=== PATIENT | female | born 1985 | race Caucasian/White ===

== ENCOUNTER 2024-10-08 13:10 | Emergency (ER) | payer OTHER, SELFPAY ==
[2024-10-08 13:11] VITALS: BMI 21.9
[2024-10-08 13:58] VITALS: BP 122/70; PULSE 105; RESP 20; TEMP 37.2; O2SAT 99
--- NOTE | 2024-10-08 14:03 | PD.EDRME ---
Rapid Medical Screening Exam E Arrival date/time: 10/08/24 13:10 39-year-old female presents to the emergency department with history of osteomyelitis here for complaints of possible allergic reaction to her medications and increasing back pain with fever. I have greeted and performed a focused initial assessment of this patient. Initial appropriate labs ordered at this time. A comprehensive ED assessment and evaluation of the patient and analysis of all test and completion of medical decision making process will be conducted by additional ED provider. Chief Complaint: Eye Problems Time Seen by Provider: 10/08/24 13:39 Vital signs: Vital Signs Temperature 98.9 F 10/08/24 13:58 Pulse Rate 105 H 10/08/24 13:58 Respiratory Rate 20 10/08/24 13:58 Blood Pressure 122/70 10/08/24 13:58 Pulse Oximetry (%) 99 10/08/24 13:58 Oxygen Delivery Method Room Air 10/08/24 13:58
--- NOTE | 2024-10-08 14:16 | PC.NURSE ---
Patient from [facility] and taken to rm 8 with c/o left eye pain redness intermittently after she receives vancomycin infusions, patient states she get vancomycin via homehealth nurse for osteomyelitis, Dr. Miller at bedside evaluating patient, new orders received.
--- NOTE | 2024-10-08 14:19 | EDNOTE_ITS ---
ED Eye Problem RME/HPI General Chief complaint: Eye Problems Stated complaint: LEFT EYE REDNESS, SORE THROAT X1DAY, HX OF OSTEOMY Time Seen by Provider: 10/08/24 13:39 Arrival date/time: 10/08/24 13:10 RME / HPI RME / HPI Narrative: 10/08/24 13:10 39-year-old female presents to the emergency department with history of osteomyelitis here for complaints of possible allergic reaction to her medications and increasing back pain with fever. I have greeted and performed a focused initial assessment of this patient. Initial appropriate labs ordered at this time. A comprehensive ED assessment and evaluation of the patient and analysis of all test and completion of medical decision making process will be conducted by additional ED provider. DR ALMA AKINS ED EVALUATION Patient is a 39 year old female presenting to the ED complaining of left eye irritation and redness following a home antibiotics. Patient history includes sepsis and osteomyelitis, states she has a port in place where she does vancomycin treatments x2 daily, states her eyes always become irritated post treatment. Complains of left sided back pain and fever today. No further reported history at this time. Related Data Previous Rx's ?Medication ?Instructions ?Recorded ciprofloxacin HCl 500 mg tablet 500 mg PO Q12H #20 tabs 08/24/24 Allergies Allergy/AdvReac Type Severity Reaction Status Date / Time amoxicillin Allergy Severe Anaphylaxis Verified 10/08/24 13:13 Penicillins Allergy Severe Anaphylaxis Verified 10/08/24 13:13 Review of Systems Review of Systems Narrative Review of Systems: Gen: + fever, no chills, no weight loss EYES: +left eye pain, redness, and swelling. No discharge, no visual changes HEENT: No ear pain, no congestion, no sore throat PULM: No shortness of breath, no cough, no congestion CV: No chest pain, no dyspnea on exertion, no palpitations GI: No nausea, no vomiting, no diarrhea, no pain, no constipation : No frequency, no urgency, no dysuria Musc/skel:+left side back pain. No joint pain Skin: No rash Psyc: No hallucinations, no depression Heme/Lymph: No easy bleeding or bruising tendencies Neuro: No weakness, no headache Past Medical History Past Medical History CARDIAC: Negative Cardiac Disorders or Congestive Heart Failure RESPIRATORY: Negative Chronic Obstructive Pulmonary Disease (COPD) or Asthma GENITOURINARY: Negative Renal Disease MUSCULOSKELETAL: Positive Musculoskeletal Disorders (osteomyelitis) ENDOCRINE: Negative Diabetes Mellitus Type 1 or Diabetes Mellitus Type 2 HEMATOLOGIC: Negative Sickle Cell Disease Social History SMOKING STATUS: Never smoker ED Exam Narrative Physical exam: GEN. APPEARANCE: The patient is alert awake oriented X-3 in minimal distress, lying down comfortably, does not look ill/toxic. Patient has good eye contact. Patient is cooperative. VITALS: All vitals were reviewed and the pulse ox is 99% on room air which is normal according to my interpretation. HEENT:pink discoloration of upper and lower eyelid on the left, no swelling no discharge. Pupils are equal and reactive. Oral mucosa is moist. Patent Nares NECK: Supple, nontender, no thyromegaly, no meningismus, no JVD, no step offs CHEST: Symmetrical, atraumatic, and with equal expansion , Nontender on palpation no deformity and no crepitus. CARDIOVASCULAR: Heart regular rhythm no murmur or gallop rub or extra beats. LUNGS: Clear to auscultation bilaterally with symmetrical chest rise. No laboring tachypnea or wheezing. No intercostal subcostal retraction. No rales and no rhonchi. ABDOMEN: Soft, flat, nontender to palpation, no guarding or rebound tenderness. There are no abnormal masses palpated. Active and normal bowel sounds. EXTREMITIES: midline port catheter intact, clean and dry. Nontender. No edema. No cyanosis. Patient is able to move all 4 extremities well, with full ROM and good CSM. SKIN: Warm and dry, no jaundice or rashes noted. MUSCULOSKELETAL: No lubar or midline bony tenderness. There is no CVA tenderness. No paraspinal muscle spasm or tenderness. NEURO: Patient is CEDENO x 4, Cranial nerves II through XII grossly intact. There is no focal neurologic deficits noted. GCS is 15, PNS and SEARCH MANAGER appear grossly intact. PSYCHIATRIC: Patient is in normal mood and affect, cooperative, no SI or HI or hallucinations. Course Quality Measures none Orders Category Date Time Status CBC Stat Lab 10/08/24 14:33 Completed CMP [Comprehensive Metabolic Panel] Stat Lab 10/08/24 14:33 Completed HYDROcodone*/APAP 5/325 [[place] 5/325] Med 10/08/24 14:20 Discontinued 1 tab PO X1 ONE Reevaluation(s) Reevaluation #1: Patient is feeling better after medication however is requesting something else. Time: 15:34 Vital Signs Vital signs: Vital Signs Temperature 98.9 F 10/08/24 13:58 Pulse Rate 105 H 10/08/24 13:58 Respiratory Rate 20 10/08/24 13:58 Blood Pressure 122/70 10/08/24 13:58 Pulse Oximetry (%) 99 10/08/24 13:58 Oxygen Delivery Method Room Air 10/08/24 13:58 Eye Patient data External records reviewed:: [facility] previous records Clinical information provided by:: patient Social determinants that could affect healthcare access:: none Patient has the following chronic illnesses:: osteomyelitis, sepsis How is presenting disease/condition affected by chronic disease/condition?: uneffected by Evaluation data The following diagnostics were reviewed and interpreted by me:: lab results Lab and/or radiology exams considered but not ordered:: none Interpretation Summary: see above Medications / Prescriptions Medications or Prescriptions considered but not ordered:: none Medication administrations:: Medication Administration History Discontinued Medications Hydrocodone Bitart/Acetaminophen (Hydrocodone/Apap 5/325 Tablet) 1 tab PO X1 ONE Stop: 10/08/24 14:21 Last Admin: 10/08/24 14:26 Dose: 1 tab Documented By: KM see above Consultations Consultation(s) initiated? (list below): No Diagnosis Eye Problem Differential Diagnosis: other (chronic pain, viral syndrome, osteomyelitis, bacteremia) Most likely diagnosis given after review of the tests above:: see below Admission Indicated Admission indicated?: not indicated Admission Request Was there a request for admission?: No Disposition Plan Disposition Plan: Discharge Discharge Attestation Discharge Attestation: The patient and all family members were given an opportunity to ask questions and understood the discharge instructions. Discharge instructions specifically effects, indications for sooner follow up or return to the emergency department, and the expected course of current diagnosis. Patient condition: Stable Discharge Plan Plan Patient Disposition: HOME (Self Care) Prescriptions/Referrals Prescriptions/Med Rec: No Action ciprofloxacin HCl 500 mg tablet 500 mg PO Q12H Qty: 20 0RF Problem List Clinical Impression: Allergic drug reaction, Osteomyelitis of vertebra Patient/Caregiver Discharge Instructions Education Materials: ED Medicine Reaction: Allergic Additional Instructions: Today's reaction to your eyes is mild and does not outweigh the benefits of continued antibiotic infusion at home. It is okay to continue your regular vancomycin treatments. Follow-up with your infectious disease provider ([facility]) within 1 week for recheck. You can return to the emergency department sooner symptoms worsen or if you notice any new, concerning issues. Print Language: Indonesian Stand Alone Forms: [facility]isa Award Info., Patient Portal Info Letter
[2024-10-08] MEDS: HYDROcodone/APAP 5/325 TABLET 1 TAB PO (14:26)
[2024-10-08 14:53] LABS: Basophils # (Auto) 0.1 Thou/mm3 (0.0-0.2); Basophils % (Auto) 1 % (0-2.5); Eosinophils # (Auto) 0.1 Thou/mm3 (0.0-0.5); Eosinophils % (Auto) 1 % (0-10); Hematocrit 36.2 % (36.0-46.0); Hemoglobin 11.3 g/dL (12.0-16.0); Immature Granulocytes % (Auto) 0 % (0-0); Immature Granulocytes Auto 0.04 Thou/mm3 (0.00-0.00); Lymphocytes # (Auto) 1.7 Thou/mm3 (1.0-4.8); Lymphocytes % (Auto) 14 % (10-50); Mean Corpuscular HGB Conc 31.2 g/dl (31.0-37.0); Mean Corpuscular Volume 83 fL (80-100); Monocytes # (Auto) 0.8 Thou/mm3 (0.0-0.8); Monocytes % (Auto) 6 % (0-12); Neutrophils # (Auto) 10.1 Thou/mm3 (1.8-7.7); Neutrophils % (Auto) 79 % (37-80); Nucleated Red Blood Cell % 0 /100 WBC (0); Platelet Count 375 Thou/mm3 (140-440); RDW Standard Deviation 56.2 fL (36.4-46.3); Red Blood Count 4.35 Miln/mm3 (4.00-5.20); White Blood Count 12.7 Thou/mm3 (3.6-11.0)
[2024-10-08 15:10] LABS: Alanine Aminotransferase 12 U/L (10-49); Albumin/Globulin Ratio 1.8 (1.2-2.2); Alkaline Phosphatase 117 U/L (46-116); Anion Gap 11 (7-16); Aspartate Amino Transferase 16 U/L (0-34); BUN/Creatinine Ratio 20 Ratio (12-20); Bilirubin,Total 0.2 mg/dL (0.3-1.2); Blood Urea Nitrogen 18 mg/dL (9-23); Calcium 9.4 mg/dL (8.3-10.6); Calcium (Corrected) 9.4 mg/dL (8.5-10.1); Carbon Dioxide 20.4 mMol/L (20.0-31.0); Chloride 109 mMol/L (98-107); Creatinine (Component) 0.9 mg/dL (0.6-1.3); Estimated Creatinine Clearance 83.2 mL/min (>60); Globulin 2.8 gm/dL (2.3-3.5); Osmolality,Calculated 278 (275-295); Potassium 3.5 mMol/L (3.4-5.1); Sodium 140 mMol/L (136-145); Total Protein 7.8 gm/dL (5.7-8.2); eGFR > 60 See Note
[2024-10-08 15:17] LABS: Glucose 43 mg/dL (74-106)
--- NOTE | 2024-10-08 15:26 | PC.NURSE ---
Dr. Miller speaking with patient regarding her results and plan of care.
[2024-10-08 15:50] VITALS: BP 111/70; PULSE 96; RESP 16; TEMP 37.1; O2SAT 98
== END 2024-10-08 15:50 | disposition home or self-care (01) ==
LOC: SERX 15:54
PROVIDERS: Emergency Provider Emergency Medicine
DX: H57.89 Other specified disorders of eye and adnexa (principal); T36.8X5A Adverse effect of other systemic antibiotics, initial encounter; M46.20 Osteomyelitis of vertebra, site unspecified
CPT/HCPCS: 36415; 80053; 85025; 99283; A9270

== ENCOUNTER 2024-10-26 19:04 | Emergency (ER) | payer OTHER, SELFPAY ==
[2024-10-26 19:05] VITALS: BMI 22.7
[2024-10-26 20:09] VITALS: BP 119/89; PULSE 106; RESP 16; TEMP 37.1; O2SAT 97
--- NOTE | 2024-10-26 20:15 | XR_ITS ---
Examination: CT abdomen and pelvis without contrast. Coronal 3-D reconstructions. Sagittal 2-D reconstructions. Date and time of exam:October 26, 2024 1101 hrs. Indications: Onset left flank pain today with chills CTDI: vol (mGy): 8.06 DLP: (mGycm): 463 Technique: Axial images of the abdomen have been obtained, 3 mm slice thickness Intravenous contrast material has not been administered. Low dose protocols were performed. One or more of the following dose reduction techniques were used; automated exposure control, adjustment of the mA and/or KV according to patient size, use of iterative reconstruction technique. Findings: Small retrocardiac gastric hernia No focal liver or splenic lesions Absent gallbladder No pancreatic mass 2 mm nonobstructing left renal calculus, no hydronephrosis or ureteral calculi Air distended colon Normal appendix No diverticulitis Suspicious for 6.8 cm posterior left pelvic cyst Partially anteverted uterus Contracted urinary bladder Severe osteopenia with kyphoplasty T12 and chronic compression T12 and T9 Impression: 2 mm nonobstructing left renal calculus, no hydronephrosis or ureteral calculi Colonic ileus Normal appendix Recommend pelvic sonography to exclude 6.8 cm left pelvic cyst
--- NOTE | 2024-10-26 20:15 | PD.EDRME ---
Rapid Medical Screening Exam [facility] Arrival date/time: 10/26/24 19:04 39F with history of seizures and kidney stones (needing surgery before) presents to ED with 2 days of L flank pain and dysuria/hematuria, as well as N/V. Chief Complaint: Urogenital-Female Vital signs: Vital Signs Temperature 98.8 F 10/26/24 20:09 Pulse Rate 106 H 10/26/24 20:09 Respiratory Rate 16 10/26/24 20:09 Blood Pressure 119/89 H 10/26/24 20:09 Pulse Oximetry (%) 97 10/26/24 20:09 Oxygen Delivery Method Room Air 10/26/24 20:09
[2024-10-26] MEDS: ONDANSETRON ODT 4 MG TABRAP PO (21:01)
[2024-10-26] MEDS: KETOROLAC INJ 60 MG/2 ML VIAL IM (21:01)
[2024-10-26 21:05] LABS: Lactate (Lactic Acid) 1.5 mMol/L (0.4-2.0)
[2024-10-26 21:06] LABS: Basophils # (Auto) 0.1 Thou/mm3 (0.0-0.2); Basophils % (Auto) 1 % (0-2.5); Eosinophils # (Auto) 0.1 Thou/mm3 (0.0-0.5); Eosinophils % (Auto) 1 % (0-10); Hematocrit 34.9 % (36.0-46.0); Hemoglobin 11.1 g/dL (12.0-16.0); Immature Granulocytes % (Auto) 0 % (0-0); Immature Granulocytes Auto 0.02 Thou/mm3 (0.00-0.00); Lymphocytes # (Auto) 3.2 Thou/mm3 (1.0-4.8); Lymphocytes % (Auto) 28 % (10-50); Mean Corpuscular HGB Conc 31.8 g/dl (31.0-37.0); Mean Corpuscular Hemoglobin 25.9 pg (25.0-35.0); Mean Corpuscular Volume 82 fL (80-100); Monocytes # (Auto) 1.1 Thou/mm3 (0.0-0.8); Monocytes % (Auto) 10 % (0-12); Neutrophils # (Auto) 6.8 Thou/mm3 (1.8-7.7); Neutrophils % (Auto) 61 % (37-80); Nucleated Red Blood Cell % 0 /100 WBC (0); Platelet Count 453 Thou/mm3 (140-440); RDW Standard Deviation 54.8 fL (36.4-46.3); Red Blood Count 4.28 Miln/mm3 (4.00-5.20); White Blood Count 11.2 Thou/mm3 (3.6-11.0)
[2024-10-26 21:37] LABS: Alanine Aminotransferase 10 U/L (10-49); Albumin/Globulin Ratio 1.7 (1.2-2.2); Alkaline Phosphatase 110 U/L (46-116); Anion Gap 11 (7-16); Aspartate Amino Transferase 18 U/L (0-34); BUN/Creatinine Ratio 30 Ratio (12-20); Bilirubin,Total 0.2 mg/dL (0.3-1.2); Blood Urea Nitrogen 27 mg/dL (9-23); Calcium 9.7 mg/dL (8.3-10.6); Calcium (Corrected) 9.7 mg/dL (8.5-10.1); Carbon Dioxide 18.3 mMol/L (20.0-31.0); Chloride 108 mMol/L (98-107); Creatinine (Component) 0.9 mg/dL (0.6-1.3); Estimated Creatinine Clearance 83.2 mL/min (>60); Glucose 83 mg/dL (74-106); Lipase 49 U/L (12-53); Osmolality,Calculated 277 (275-295); Potassium 4.4 mMol/L (3.4-5.1); Procalcitonin 0.14 ng/ml (0.0-0.49); Sodium 137 mMol/L (136-145); eGFR > 60 See Note
[2024-10-26 21:38] LABS: HCG,Qualitative Serum Negative
[2024-10-26 21:42] LABS: Collection Type, Urine Clean Catch
[2024-10-26 22:01] LABS: Amphetamine/Methamp Scrn,U Negative (Negative); Barbiturate Screen,Urine Negative (Negative); Benzodiazepines Screen,Urine Negative (Negative); Benzoylecgonine Screen, Ur Negative (Negative); Fentanyl Screen,Urine Negative (Negative); Opiate Screen,Urine Negative (Negative); THC Screen,Urine Negative (Negative)
[2024-10-26 22:21] LABS: Bilirubin,Urine Negative (Negative); Blood,Urine 3+ (Negative); Color,Urine Brown (Lt Yel-Yel); Culture Indicated,Urine Contaminated; Glucose, Urine Negative (Negative); Ketones,Urine Negative (Negative); Leukocyte Esterase,Urine Positive (Negative); Nitrite,Urine Negative (Negative); PH,Urine 5.5 (5.0-7.0); Protein,Urine 1+ (Neg - Trace); RBC,Urine 5533 /hpf (0-3); Specific Gravity,Urine 1.045 (1.001-1.035); Squamous Epithelial Cell,Urine 26 /hpf (0-5); Urobilinogen,Urine Negative mg/dL (0.0-1.0); WBC,Urine 51 /hpf (0-5)
[2024-10-26 22:23] LABS: Clarity,Urine Turbid (Clear/Hazy)
[2024-10-26 22:24] VITALS: BP 126/93; PULSE 94; RESP 16; TEMP 36.8; O2SAT 97
--- NOTE | 2024-10-26 22:27 | PC.NURSE ---
Pt to room 7 at this time from lobby; assumed care.
--- NOTE | 2024-10-27 00:09 | EDNOTE_ITS ---
ED Female Urogenital RME/HPI General Chief complaint: Urogenital-Female Stated complaint: HEMATURIA; L FLANK PAIN X1 DAY; CHILLS Time Seen by Provider: 10/26/24 21:00 Arrival date/time: 10/26/24 19:04 Limitations: no limitations RME / HPI RME / HPI Narrative: 10/26/24 19:04 39F with history of seizures and kidney stones (needing surgery before) presents to ED with 2 days of L flank pain and dysuria/hematuria, as well as N/V. --------- Dr. Agrawal's Main ED Evaluation: 39yo female presents to the ED for a chief complaint of left flank pain x 2 days. Patient states the pain is severe, endorsing it feels similar to her kidney stones last year. She currently rates the pain an 8 out of 10 in severity. .She endorses associated hematuria and nausea. Her urologist is in [place]. She denies any fever, chills or any other associated symptoms. Related Data Allergies Allergy/AdvReac Type Severity Reaction Status Date / Time amoxicillin Allergy Severe Anaphylaxis Verified 10/26/24 19:10 Penicillins Allergy Severe Anaphylaxis Verified 10/26/24 19:10 tramadol Allergy Severe Hives Verified 10/26/24 19:10 Review of Systems Review of Systems Systems Reviewed: All systems reviewed, normal except as documented Past Medical History Past Medical History CARDIAC: Negative Congestive Heart Failure RESPIRATORY: Negative Chronic Obstructive Pulmonary Disease (COPD) GENITOURINARY: Positive Kidney Stones; Negative Renal Disease ENDOCRINE: Negative Diabetes Mellitus Type 1 or Diabetes Mellitus Type 2 Social History SMOKING STATUS: Never smoker ED Exam General Limitations: Present no limitations General appearance: Present alert and in no apparent distress Head Head exam: Present atraumatic Eye Eye exam: Present normal appearance, PERRL and EOMI ENT ENT exam: Present normal exam, normal oropharynx and mucous membranes moist Neck Neck exam: Present normal inspection, full ROM and trachea midline Chest Chest inspection: Present normal inspection and symmetric chest wall rise Respiratory Respiratory exam: Present normal lung sounds bilaterally Cardiovascular Cardiovascular exam: Present regular rate, normal rhythm and normal heart sounds Abdominal Exam Abdominal exam: Present soft and normal bowel sounds Extremities Exam Extremities exam: Present normal inspection and full ROM Back Exam Back exam: Present full ROM and CVA tenderness (L) (mild) Neurological Exam Neurological exam: Present alert, oriented X3 and CN II-XII intact Psychiatric Psychiatric exam: Present normal affect and normal mood Skin Skin exam: Present warm, dry, intact and normal color Course Quality Measures none Orders Category Date Time Status CT abdomen pelvis wo con Stat Exams 10/26/24 20:15 Completed CBC Stat Lab 10/26/24 20:41 Completed CMP [Comprehensive Metabolic Panel] Stat Lab 10/26/24 20:41 Completed Drug Screen,Urine Stat Lab 10/26/24 21:22 Completed HCG,Qualitative Serum Stat Lab 10/26/24 20:41 Completed Lactate (Lactic Acid) Stat Lab 10/26/24 20:41 Completed Lipase Stat Lab 10/26/24 20:41 Completed Procalcitonin Stat Lab 10/26/24 20:41 Completed Urinalysis, C/S if Indicated Stat Lab 10/26/24 19:10 Completed HYDROcodone/APAP 10/325 [[place] 10/325] Med 10/27/24 01:42 Discontinued 1 tab PO X1 ONE HYDROmorphone INJ [Dilaudid Inj] Med 10/27/24 00:28 Discontinued 1 mg IVP X1 ONE Ketorolac Inj [Toradol Inj] Med 10/27/24 00:09 Discontinued 30 mg IVP X1 ONE Ketorolac Inj [Toradol Inj] Med 10/26/24 20:15 Discontinued 60 mg IM X1 ONE Ondansetron Odt [Zofran Odt] Med 10/26/24 20:15 Discontinued 4 mg PO X1 ONE Ondansetron Odt [Zofran Odt] Med 10/27/24 00:35 Discontinued 4 mg PO X1 ONE Tamsulosin HCl [Flomax] Med 10/27/24 00:28 Discontinued 0.4 mg PO X1 ONE Vital Signs Vital signs: Vital Signs Temperature 98.8 F 10/26/24 20:09 Pulse Rate 106 H 10/26/24 20:09 Respiratory Rate 16 10/26/24 20:09 Blood Pressure 119/89 H 10/26/24 20:09 Pulse Oximetry (%) 97 10/26/24 20:09 Oxygen Delivery Method Room Air 10/26/24 20:09 Pulse ox is 97% on room air, which is normal according to my interpretation. Urogenital - Female Patient data External records reviewed:: [facility] previous records (Per chart review, patient has no previous ED visits or admissions.) Clinical information provided by:: patient Social determinants that could affect healthcare access:: none Patient has the following chronic illnesses:: kidney stones How is presenting disease/condition affected by chronic disease/condition?: caused by Evaluation data The following diagnostics were reviewed and interpreted by me:: lab results and radiology exam(s) Lab and/or radiology exams considered but not ordered:: none Interpretation Summary: WBC count is slightly elevated at 11.2, CMP is normal, Lactic Acid is normal, Procalcitonin is normal, HCG is negative, UDS is negative, UA shows brown urine with 1+ protein, 5533 RBCs, 51 WBCs, but is contaminated, according to my interpretation. ------ I have personally reviewed the radiology data and agree with the radiologist's interpretation below: [facility] Report Signed Patient: DREW LEON [facility]. Record#: [id number] Birthdate: 1985 Age/Sex: 39 / F Location: [facility] Attending Dr: Ordering Physician: Dawood Esquivel PA-C Date of Service: 10/26/24 Procedure(s): CT abdomen pelvis wo con Accession Number(s): [id number] cc: Kai Crockett MD; NO PRIMARY/FAMILY,PHYSICIAN; Dawood Esquivel PA-C~ Examination: CT abdomen and pelvis without contrast. Coronal 3-D reconstructions. Sagittal 2-D reconstructions. Date and time of exam:October 26, 2024 1101 hrs. Indications: Onset left flank pain today with chills CTDI: vol (mGy): 8.06 DLP: (mGycm): 463 Technique: Axial images of the abdomen have been obtained, 3 mm slice thickness Intravenous contrast material has not been administered. Low dose protocols were performed. One or more of the following dose reduction techniques were used; automated exposure control, adjustment of the mA and/or KV according to patient size, use of iterative reconstruction technique. Findings: Small retrocardiac gastric hernia No focal liver or splenic lesions Absent gallbladder No pancreatic mass 2 mm nonobstructing left renal calculus, no hydronephrosis or ureteral calculi Air distended colon Normal appendix No diverticulitis Suspicious for 6.8 cm posterior left pelvic cyst Partially anteverted uterus Contracted urinary bladder Severe osteopenia with kyphoplasty T12 and chronic compression T12 and T9 Impression: 2 mm nonobstructing left renal calculus, no hydronephrosis or ureteral calculi Colonic ileus Normal appendix Recommend pelvic sonography to exclude 6.8 cm left pelvic cyst Dictated By: Kai Crockett MD Signed By: <Electronically signed by Kai Crockett MD in [place]> 10/26/24 7059 Medications / Prescriptions Medications or Prescriptions considered but not ordered:: none Medication administrations:: Medication Administration History Discontinued Medications Hydrocodone Bitart/Acetaminophen (Hydrocodone/Apap 10/325 Tab) 1 tab PO X1 ONE Stop: 10/27/24 01:43 Last Admin: 10/27/24 01:58 Dose: 1 tab Documented By: KG Hydromorphone HCl (Hydromorphone Inj 2 Mg/Ml Vial) 1 mg IVP X1 ONE Stop: 10/27/24 00:29 Last Admin: 10/27/24 00:36 Dose: 1 mg Documented By: KG Ketorolac Tromethamine (Ketorolac Inj 60 Mg/2 Ml Vial) 60 mg IM X1 ONE Stop: 10/26/24 20:16 Last Admin: 10/26/24 21:01 Dose: 60 mg Documented By: EE Ketorolac Tromethamine (Ketorolac Inj 30 Mg/Ml Vial) 30 mg IVP X1 ONE Stop: 10/27/24 00:10 Last Admin: 10/27/24 00:26 Dose: 30 mg Documented By: KG Ondansetron HCl (Ondansetron Odt 4 Mg Tabrap) 4 mg PO X1 ONE; Protocol Stop: 10/26/24 20:16 Last Admin: 10/26/24 21:01 Dose: 4 mg Documented By: EE Ondansetron HCl (Ondansetron Odt 4 Mg Tabrap) 4 mg PO X1 ONE; Protocol Stop: 10/27/24 00:36 Last Admin: 10/27/24 00:39 Dose: 4 mg Documented By: KG Tamsulosin HCl (Tamsulosin Hcl 0.4 Mg Capsule) 0.4 mg PO X1 ONE Stop: 10/27/24 00:29 Last Admin: 10/27/24 00:36 Dose: 0.4 mg Documented By: KG see above Consultations Consultation(s) initiated? (list below): No Diagnosis Urogenital Female Differential Diagnosis: other (kidney stone, obstructing kidney stone, UTI, infected kidney stone) Most likely diagnosis given after review of the tests above:: see below Admission Indicated Admission indicated?: not indicated Admission Request Was there a request for admission?: No Disposition Plan Disposition Plan: Discharge Discharge Attestation Discharge Attestation: The patient and all family members were given an opportunity to ask questions and understood the discharge instructions. Discharge instructions specifically effects, indications for sooner follow up or return to the emergency department, and the expected course of current diagnosis. Patient condition: Stable Discharge Plan Plan Patient Disposition: HOME (Self Care) Prescriptions/Referrals Referrals: No Primary/Family,Physician [Primary Care Provider] - In 1 week Problem List Clinical Impression: Kidney stone Patient/Caregiver Discharge Instructions Print Language: Turkish Stand Alone Forms: [facility] Award Info., Patient Portal Info Letter
[2024-10-27] MEDS: KETOROLAC INJ 30 MG/ML VIAL IVP (00:26)
[2024-10-27 00:32] VITALS: BP 133/105; PULSE 81; RESP 18; O2SAT 100
[2024-10-27] MEDS: TAMSULOSIN HCL 0.4 MG CAPSULE PO (00:36)
[2024-10-27] MEDS: HYDROmorphone INJ 2 MG/ML VIAL 1 MG IVP (00:36)
[2024-10-27] MEDS: ONDANSETRON ODT 4 MG TABRAP PO (00:39)
[2024-10-27] MEDS: HYDROcodone/APAP 10/325 TAB PO (01:58)
[2024-10-27 02:03] VITALS: BP 98/85; PULSE 91; RESP 18; O2SAT 98
--- NOTE | 2024-10-27 02:23 | PC.NURSE ---
Pt reports told her she will be getting a prescription for Flomax. No prescription seen in discharge papers at this time - reminded Dr. Agrawal that prescription needs to be sent.
== END 2024-10-27 02:03 | disposition home or self-care (01) ==
PROVIDERS: Physician Assistant; Emergency Provider Emergency Medicine
DX: N20.0 Calculus of kidney (principal); K56.7 Ileus, unspecified; R93.49 Abnormal radiologic findings on diagnostic imaging of other urinary organs
CPT/HCPCS: 36415; 74176; 80053; 80307; 81001; 81025; 83605; 83690; 84145; 84703; 85025; 96372; 96374; 96375; 99284; J1885; J3490; Q0162; A9270

== ENCOUNTER 2024-11-09 20:28 | Emergency (ER) | payer OTHER, SELFPAY ==
[2024-11-09 20:30] VITALS: BMI 17.2
[2024-11-09 21:40] VITALS: BP 118/81; PULSE 88; RESP 16; TEMP 36.8; O2SAT 99
--- NOTE | 2024-11-09 21:40 | PD.EDRME ---
Rapid Medical Screening Exam RME Arrival date/time: 11/09/24 20:28 39 year old female present to ED for c/o of flank pain, recent dx with kidney stone I have greeted and performed a focused initial assessment of this patient. A comprehensive ED assessment and evaluation of the patient, analysis of all test results, and completion of the medical decision making process will be conducted by additional ED providers. Chief Complaint: Urogenital-Female Time Seen by Provider: 11/09/24 21:29
[2024-11-09] MEDS: traMADol HCL 50 MG TABLET PO (21:47)
[2024-11-09 22:28] LABS: Basophils # (Auto) 0.1 Thou/mm3 (0.0-0.2); Basophils % (Auto) 1 % (0-2.5); Eosinophils # (Auto) 0.1 Thou/mm3 (0.0-0.5); Eosinophils % (Auto) 0 % (0-10); Hematocrit 34.4 % (36.0-46.0); Hemoglobin 10.5 g/dL (12.0-16.0); Immature Granulocytes % (Auto) 0 % (0-0); Immature Granulocytes Auto 0.04 Thou/mm3 (0.00-0.00); Lymphocytes # (Auto) 2.4 Thou/mm3 (1.0-4.8); Lymphocytes % (Auto) 20 % (10-50); Mean Corpuscular HGB Conc 30.5 g/dl (31.0-37.0); Mean Corpuscular Hemoglobin 25.6 pg (25.0-35.0); Mean Corpuscular Volume 84 fL (80-100); Monocytes # (Auto) 0.6 Thou/mm3 (0.0-0.8); Monocytes % (Auto) 5 % (0-12); Neutrophils % (Auto) 74 % (37-80); Nucleated Red Blood Cell % 0 /100 WBC (0); Platelet Count 501 Thou/mm3 (140-440); RDW Standard Deviation 55.9 fL (36.4-46.3); White Blood Count 12.2 Thou/mm3 (3.6-11.0)
[2024-11-09 22:50] LABS: Alanine Aminotransferase 16 U/L (10-49); Albumin, Serum 4.8 gm/dL (3.5-5.0); Albumin/Globulin Ratio 1.7 (1.2-2.2); Alkaline Phosphatase 130 U/L (46-116); Anion Gap 9 (7-16); Aspartate Amino Transferase 15 U/L (0-34); BUN/Creatinine Ratio 22 Ratio (12-20); Bilirubin,Total < 0.2 mg/dL (0.3-1.2); Blood Urea Nitrogen 24 mg/dL (9-23); Calcium 9.2 mg/dL (8.3-10.6); Calcium (Corrected) 9.2 mg/dL (8.5-10.1); Carbon Dioxide 20.9 mMol/L (20.0-31.0); Chloride 107 mMol/L (98-107); Creatinine (Component) 1.1 mg/dL (0.6-1.3); Estimated Creatinine Clearance 55.2 mL/min (>60); Globulin 2.9 gm/dL (2.3-3.5); Glucose 105 mg/dL (74-106); Lipase 63 U/L (12-53); Osmolality,Calculated 277 (275-295); Potassium 4.4 mMol/L (3.4-5.1); Sodium 137 mMol/L (136-145); Total Protein 7.7 gm/dL (5.7-8.2); eGFR > 60 See Note
[2024-11-09 22:55] LABS: HCG,Qualitative Serum Negative
--- NOTE | 2024-11-10 01:29 | PC.NURSE ---
patient called back from lobby no answer
--- NOTE | 2024-11-10 01:54 | PC.NURSE ---
PT CALLED BACK FROM LOBBY NO ANSWER
--- NOTE | 2024-11-10 02:06 | PC.NURSE ---
PT CALLED BACK FROM LOBBY NO ANSWER
--- NOTE | 2024-11-10 02:31 | PC.NURSE ---
PT WALKED IN FROM OUTSIDE. INFORMED PT WE HAVE CALLED HER SEVERAL TIMES. PT WAITING IN LOBBY AT THIS TIME
--- NOTE | 2024-11-10 05:13 | PC.NURSE ---
PT CALLED FROM LOBBY TO UPDATE VITALS AND I RECEIVED NO ANSWER.
--- NOTE | 2024-11-10 05:31 | PC.NURSE ---
PT CALLED FROM LOBBY X2 WITH NO ANSWER.
== END 2024-11-10 01:39 | disposition left against medical advice (07) ==
LOC: SERX 22:03
PROVIDERS: Physician Assistant; Emergency Provider Emergency Medicine
DX: R10.9 Unspecified abdominal pain (principal); Z53.29 Procedure and treatment not carried out because of patient's decision for other reasons
CPT/HCPCS: 36415; 80053; 81001; 83690; 84703; 85025; 87086; 99283; A9270

== ENCOUNTER 2024-11-20 12:43 | Emergency (ER) | payer OTHER, SELFPAY ==
[2024-11-20 12:58] VITALS: BP 114/81; PULSE 107; RESP 18; TEMP 36.8; O2SAT 99; BMI 23.8
--- NOTE | 2024-11-20 12:59 | XR_ITS ---
Examination: CT abdomen with intravenous contrast CT pelvis with intravenous contrast 2-D coronal reconstructions 2-D sagittal reconstructions Date and time of exam:November 20, 2024 1714 hours INDICATIONS: Abdominal pain acute gastrointestinal bleeding beginning 3 days ago, nausea vomiting, diagnosis multiple myeloma. History kidney stones CTDI: vol (mGy) 8.12 DLP: (mGycm) 470 Technique: Multiple axial sections of the abdomen and pelvis have been obtained. 64 slice high-resolution scanner used. 3 mm axial sections have been obtained, post intravenous injection 40 cc [id number] 2-D sagittal, coronal reconstructions obtained. Low dose protocols were performed. One or more of the following dose reduction techniques were used; automated exposure control, adjustment of the mA and/or KV according to patient size, use of iterative reconstruction technique. Findings: Pericardial effusion, inferiorly on the right measuring up to 13 mm No focal liver lesions Absent gallbladder Spleen not enlarged No pancreatic or adrenal mass 2 mm upper pole left renal calculus, no hydronephrosis or ureteral calculi Aorta normal size No pericecal inflammatory change No bowel obstruction Left abdomen bowel sutures No diverticulitis Partially retroverted uterus No uterine or adnexal mass Possible mild asymmetric inflammatory change in the right perineum axial image 251, clinical correlation advised Severe osteopenia, chronic osteoporotic compressions T12 T9, T8 with kyphoplasty T12 IMPRESSION: Partial visualization pericardial effusion 2 mm calculus upper pole left kidney, no hydronephrosis or ureteral calculi No CT findings of appendicitis bowel obstruction or diverticulitis Consider nuclear medicine labeled red blood cell gastrointestinal bleeding study follow-up as clinically warranted
--- NOTE | 2024-11-20 13:00 | EDRME_ITS ---
Rapid Medical Screening Exam [facility] Arrival date/time: 11/20/24 12:43 39-year-old female presents emergency department complaints of abdominal pain and vomiting blood. Patient reports that on the fifth of this month she was admitted to [facility] had banding and endoscopy done on the seventh Chief Complaint: GI Bleed Vital signs: Vital Signs Temperature 98.3 F 11/20/24 12:58 Pulse Rate 107 H 11/20/24 12:58 Respiratory Rate 18 11/20/24 12:58 Blood Pressure 114/81 11/20/24 12:58 Pulse Oximetry (%) 99 11/20/24 12:58 Oxygen Delivery Method Room Air 11/20/24 12:58
[2024-11-20 13:31] LABS: Basophils # (Auto) 0.1 Thou/mm3 (0.0-0.2); Basophils % (Auto) 1 % (0-2.5); Eosinophils # (Auto) 0.2 Thou/mm3 (0.0-0.5); Eosinophils % (Auto) 2 % (0-10); Hematocrit 37.7 % (36.0-46.0); Hemoglobin 11.8 g/dL (12.0-16.0); Immature Granulocytes % (Auto) 0 % (0-0); Immature Granulocytes Auto 0.03 Thou/mm3 (0.00-0.00); Lymphocytes # (Auto) 2.2 Thou/mm3 (1.0-4.8); Lymphocytes % (Auto) 27 % (10-50); Mean Corpuscular HGB Conc 31.3 g/dl (31.0-37.0); Mean Corpuscular Hemoglobin 26.5 pg (25.0-35.0); Mean Corpuscular Volume 85 fL (80-100); Monocytes # (Auto) 0.4 Thou/mm3 (0.0-0.8); Monocytes % (Auto) 6 % (0-12); Neutrophils # (Auto) 5.2 Thou/mm3 (1.8-7.7); Neutrophils % (Auto) 64 % (37-80); Nucleated Red Blood Cell % 0 /100 WBC (0); Platelet Count 352 Thou/mm3 (140-440); RDW Standard Deviation 56.9 fL (36.4-46.3); Red Blood Count 4.46 Miln/mm3 (4.00-5.20)
[2024-11-20 13:48] LABS: INR 0.9 (0.9-1.3); Partial Thromboplastin Time 28.3 Seconds (22.0-36.0); Prothrombin Time 10.1 Seconds (9.0-12.2)
[2024-11-20 13:49] LABS: Alanine Aminotransferase 14 U/L (10-49); Albumin, Serum 4.4 gm/dL (3.5-5.0); Albumin/Globulin Ratio 1.4 (1.2-2.2); Alkaline Phosphatase 119 U/L (46-116); Anion Gap 10 (7-16); Aspartate Amino Transferase 21 U/L (0-34); BUN/Creatinine Ratio 23 Ratio (12-20); Bilirubin,Total 0.2 mg/dL (0.3-1.2); Blood Urea Nitrogen 21 mg/dL (9-23); Calcium 9.3 mg/dL (8.3-10.6); Calcium (Corrected) 9.3 mg/dL (8.5-10.1); Carbon Dioxide 18.9 mMol/L (20.0-31.0); Chloride 109 mMol/L (98-107); Creatinine (Component) 0.9 mg/dL (0.6-1.3); Estimated Creatinine Clearance 83.2 mL/min (>60); Globulin 3.2 gm/dL (2.3-3.5); Glucose 71 mg/dL (74-106); Osmolality,Calculated 276 (275-295); Potassium 4.5 mMol/L (3.4-5.1); Sodium 138 mMol/L (136-145); Total Protein 7.6 gm/dL (5.7-8.2); eGFR > 60 See Note
[2024-11-20 13:54] LABS: HCG,Qualitative Serum Negative
--- NOTE | 2024-11-20 14:06 | PD.EDGIBLD ---
ED GI Bleed RME/HPI General Chief complaint: GI Bleed Stated complaint: VOMITING BLOOD Time Seen by Provider: 11/20/24 14:04 Arrival date/time: 11/20/24 12:43 RME / HPI RME / HPI Narrative: 11/20/24 12:43 39-year-old female presents emergency department complaints of abdominal pain and vomiting blood. Patient reports that on the fifth of this month she was admitted to [facility] had banding and endoscopy done on the DR. MERCADO MAIN ED EVALUATION 39 year old female with history of seizures, stomach cancer s/p complete gastrectomy in 2021 at [facility] presents to the ED for evaluation of abdominal pain beginning this morning. Described as aching in sensation that is located most to the right upper and epigastric regions, rating as severe. Accompanied by nausea and multiple bouts of bloody emesis, totaling a little over a cup. Patient reports she was admitted at [facility] 11/11/2024 through 11/14/2024 for similar abdominal pain with bloody emesis. States during her admission she received a blood transfusion and underwent endoscopy that showed active bleeding that was banded. Reportedly after being discharged home was doing well up until today. Denies fevers, chills, chest pain, cough, shortness of breath, diarrhea, or urinary symptoms. Related Data Previous Rx's ?Medication ?Instructions ?Recorded ciprofloxacin HCl 500 mg tablet 500 mg PO Q12H #20 tabs 08/24/24 Allergies Allergy/AdvReac Type Severity Reaction Status Date / Time amoxicillin Allergy Severe Anaphylaxis Verified 11/20/24 12:46 Penicillins Allergy Severe Anaphylaxis Verified 11/20/24 12:46 ketorolac [From Toradol] Allergy Mild Hives Verified 11/20/24 12:46 Review of Systems Review of Systems Narrative Review of Systems: GEN: No fever, no chills, no weight loss EYES: No discharge, no visual changes, no pain HEENT: No ear pain, no congestion, no sore throat PULM: No shortness of breath, no cough, no congestion CV: No chest pain, no dyspnea on exertion, no palpitations GI: +vomiting blood, no diarrhea, +pain, no constipation : No frequency, no urgency and no dysuria MUSC/SKEL No joint pain, no back pain SKIN: No rash NEURO: No weakness, no headache Past Medical History Past Medical History GENITOURINARY: Positive Kidney Stones MUSCULOSKELETAL: Positive Musculoskeletal Disorders (osteomyelitis) Social History SMOKING STATUS: Never smoker ED Exam Narrative Physical exam: GENERAL APPEARANCE: Well hydrated, well nourished, in no acute distress. VITALS: All vitals were reviewed and the pulse ox is 95% on room air which is normal according to my interpretation. HEENT: Normocephalic, atramatic, EOMI, EACs are patent. There is no bulge or retraction. Throat without erythema or exudate. Moist oromucosa. No jaundice NECK: Supple, no JVD or bruits. CARDIOVASCULAR: Heart regular without S3-S4 or murmur. No rubs or gallops. LUNGS/CHEST: Clear to auscultation bilaterally. No rales, rhonchi, or wheezing. Normal inspection. ABDOMEN: Soft, old surgical scars noted, nontender, with normal bowel sounds. No pulsatile masses. No rebound, rigidity, or guarding. No incarcerated hernia. EXTREMITIES: Normal inspection and palpation. No edema, clubbing, or cyanosis. Intact CSM SKIN: Warm and dry without rashes. Normal inspection. MUSCULOSKELETAL: Normal inspection. No gross deformity, full ROM all extremities NEURO: Alert and oriented x3. Cranial nerves II through XII grossly intact. There are no other motor or sensory deficits noted. PSYCHIATRIC: Normal mood and affect. No psychosis. Course Quality Measures none Orders Category Date Time Status CT Screening NOW Care 11/20/24 13:00 Active Insert IV NOW Care 11/20/24 13:[address] abdomen pelvis w con Stat Exams 11/20/24 12:59 Ordered CBC Stat Lab 11/20/24 13:10 Completed Comprehensive Metabolic Panel Stat Lab 11/20/24 13:10 Completed HCG,Qualitative Serum Stat Lab 11/20/24 13:10 Completed Lipase Stat Lab 11/20/24 13:10 Completed Partial Thromboplastin Time Stat Lab 11/20/24 13:10 Completed Prothrombin Time with INR Stat Lab 11/20/24 13:10 Completed Type and Screen Stat Lab 11/20/24 13:10 Completed Dextrose 5%-Ns [D5-Ns] 500 ml Med 11/20/24 14:20 Active IV 125 mls/hr Morphine Inj Med 11/20/24 14:20 Discontinued 4 mg IVP X1 ONE Ondansetron Inj [Zofran Inj] Med 11/20/24 14:20 Discontinued 4 mg IV X1 ONE Pantoprazole Inj [Protonix Inj] Med 11/20/24 14:20 Discontinued 40 mg IVP X1 ONE Vital Signs Vital signs: Vital Signs Temperature 98.3 F 11/20/24 12:58 Pulse Rate 107 H 11/20/24 12:58 Respiratory Rate 18 11/20/24 12:58 Blood Pressure 114/81 11/20/24 12:58 Pulse Oximetry (%) 99 11/20/24 12:58 Oxygen Delivery Method Room Air 11/20/24 12:58 GI Bleed MDM Narrative MDM Narrative:: I, Maria Del Carmen French, gustabo scribing for and in the presence of Dr. Mercado. CBC negative. PT negative. CMP negative except for the bicarb of 19. Blood sugar was 71 therefore I put the patient on a D5 normal saline maintenance fluid. Lipase is negative. test is negative. In the emergency room, the patient received IV fluid namely D5 normal saline, medication for pain namely morphine and Zofran. I also put on Protonix IV. 6 PM, pending CT abdomen and pelvic the patient is stable and is signed out to Patient data External records reviewed:: [facility] previous records and Other (specify) (I reviewed DC paperwork from [facility] from admission 11/10/2024 through 11/14/2024. ) Clinical information provided by:: patient Social determinants that could affect healthcare access:: none Patient has the following chronic illnesses:: seizures, stomach cancer s/p complete gastrectomy in 2021 at [facility] How is presenting disease/condition affected by chronic disease/condition?: exacerbated by Evaluation data The following diagnostics were reviewed and interpreted by me:: lab results and radiology exam(s) Lab and/or radiology exams considered but not ordered:: None Interpretation Summary: As noted above Medications / Prescriptions Medications or Prescriptions considered but not ordered:: None Medication administrations:: Medication Administration History Dextrose/Sodium Chloride (D5-Ns) 500 mls @ 125 mls/hr IV .Q4H STA Stop: 11/20/24 18:19 Last Admin: 11/20/24 15:19 Dose: 125 mls/hr Documented By: ED Discontinued Medications Morphine Sulfate (Morphine Sulf Inj 10 Mg/Ml Vial) 4 mg IVP X1 ONE Stop: 11/20/24 14:21 Last Admin: 11/20/24 15:17 Dose: 4 mg Documented By: ED Ondansetron HCl (Ondansetron Inj 2 Mg/Ml Inj 2 Ml) 4 mg IV X1 ONE; Protocol Stop: 11/20/24 14:21 Last Admin: 11/20/24 15:12 Dose: 4 mg Documented By: ED Pantoprazole Sodium (Pantoprazole Inj 40 Mg Vial) 40 mg IVP X1 ONE Stop: 11/20/24 14:21 Last Admin: 11/20/24 15:15 Dose: 40 mg Documented By: ED See above Consultations Consultation(s) initiated? (list below): No Diagnosis GI bleed differential diagnosis: esophageal varices and Upper gastrointestinal hemorrhage Most likely diagnosis given after review of the tests above:: Hematemesis Abdominal pain Admission Indicated Admission indicated?: not indicated Explain why admission is indicated or not indicated:: Patient signed out pending CT scan Admission Request Was there a request for admission?: No Disposition Plan Disposition Plan: other (specify) (Signed out to Dr. Miller pending CT ) Discharge Plan Plan Disposition Comment: Stable at signout Prescriptions/Referrals Prescriptions/Med Rec: No Action ciprofloxacin HCl 500 mg tablet 500 mg PO Q12H Qty: 20 0RF Referrals: Henrry Day MD [Primary Care Provider] - In 1 week Problem List Clinical Impression: Abdominal pain, Hematemesis Patient/Caregiver Discharge Instructions Print Language: Turkmen
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
[2024-11-20 14:27] VITALS: BP 106/71; PULSE 85; RESP 18; TEMP 36.9; O2SAT 97
[2024-11-20] MEDS: ONDANSETRON INJ 2 MG/ML INJ 2 ML 4 MG IV (15:12)
[2024-11-20] MEDS: PANTOPRAZOLE INJ 40 MG VIAL IVP (15:15)
[2024-11-20] MEDS: MORPHINE SULF INJ 10 MG/ML VIAL 4 MG IVP ×3 (15:17→21:04)
[2024-11-20] MEDS: DEXTROSE 5%-NS 500 ML 125 ML IV (15:19)
[2024-11-20 15:20] LABS: Lipase 52 U/L (12-53)
[2024-11-20 16:23] VITALS: BP 100/73; PULSE 77; RESP 15; TEMP 36.7; O2SAT 95
[2024-11-20 18:04] VITALS: BP 126/78; PULSE 81; RESP 16; TEMP 36.8; O2SAT 96
--- NOTE | 2024-11-20 18:13 | EDNOTE_ITS ---
Emergency Room Addendum Addendum Narrative: 1800: Care assumed from Dr. Wood, the previous shift emergency physician. Past medical, surgical, social and family history reviewed. Vitals and home medications reviewed. Results and treatment plan discussed. I will assume the care of the patient at this time and will follow the patient, pending CT abdomen pelvis. Please refer to the emergency department record for history and examination from initial visit. 1856: Repeat HnH ordered. Currently pending records from [facility] at this time. Repeat HnH is 11.3/35.9, compared to earlier's when it was 11.8/37.7, according to my interpretation. Inpatient records from [facility] were obtained and reviewed by me. Patient had an EGD done by Dr. Schwartz on 11/13/24, which showed no varices, no ulcers, no esophageal mass, and no mass effect. It showed esophagitis. Discussed results with the patient at bedside. Patient is stable for outpatient follow-up. RADIOLOGY RESULTS: [place] [facility] Report Signed Patient: DREW LEON [facility] Record#: [id number] Birthdate: 1985 Age/Sex: 39 / F Location: [facility] Attending Dr: Ordering Physician: Nando LIND)Nate NP Date of Service: 11/20/24 Procedure(s): CT abdomen pelvis w con Accession Number(s): [id number] cc: Nando LIND),Nate DARLING; Henrry Day MD; Kai Crockett MD~ Examination: CT abdomen with intravenous contrast CT pelvis with intravenous contrast 2-D coronal reconstructions 2-D sagittal reconstructions Date and time of exam:November 20, 2024 1714 hours INDICATIONS: Abdominal pain acute gastrointestinal bleeding beginning 3 days ago, nausea vomiting, diagnosis multiple myeloma. History kidney stones CTDI: vol (mGy) 8.12 DLP: (mGycm) 470 Technique: Multiple axial sections of the abdomen and pelvis have been obtained. 64 slice high-resolution scanner used. 3 mm axial sections have been obtained, post intravenous injection 40 cc [id number] 2-D sagittal, coronal reconstructions obtained. Low dose protocols were performed. One or more of the following dose reduction techniques were used; automated exposure control, adjustment of the mA and/or KV according to patient size, use of iterative reconstruction technique. Findings: Pericardial effusion, inferiorly on the right measuring up to 13 mm No focal liver lesions Absent gallbladder Spleen not enlarged No pancreatic or adrenal mass 2 mm upper pole left renal calculus, no hydronephrosis or ureteral calculi Aorta normal size No pericecal inflammatory change No bowel obstruction Left abdomen bowel sutures No diverticulitis Partially retroverted uterus No uterine or adnexal mass Possible mild asymmetric inflammatory change in the right perineum axial image 251, clinical correlation advised Severe osteopenia, chronic osteoporotic compressions T12 T9, T8 with kyphoplasty T12 IMPRESSION: Partial visualization pericardial effusion 2 mm calculus upper pole left kidney, no hydronephrosis or ureteral calculi No CT findings of appendicitis bowel obstruction or diverticulitis Consider nuclear medicine labeled red blood cell gastrointestinal bleeding study follow-up as clinically warranted Dictated By: Kai Crockett MD Signed By: <Electronically signed by Kai Crockett MD in [place]> 11/20/24 8118
[2024-11-20 19:22] LABS: Hematocrit 35.9 % (36.0-46.0); Hemoglobin 11.3 g/dL (12.0-16.0)
[2024-11-20 19:39] VITALS: BP 113/76; PULSE 79; RESP 16; O2SAT 96
--- NOTE | 2024-11-20 20:43 | PC.NURSE ---
Reported to Dr. Miller that pt is c/o pain at this time 05/17.
--- NOTE | 2024-11-20 21:32 | PC.NURSE ---
Pt to CT scan via [facility] at this time.
[2024-11-20 22:03] VITALS: BP 112/74; PULSE 72; RESP 16; O2SAT 989
== END 2024-11-20 22:04 | disposition home or self-care (01) ==
PROVIDERS: Nurse Practitioner Primary Care; Emergency Provider Emergency Medicine; PCP Internal Medicine
DX: K92.0 Hematemesis (principal); R10.13 Epigastric pain; R10.11 Right upper quadrant pain; Z90.3 Acquired absence of stomach [part of]
CPT/HCPCS: 36415; 74177; 80053; 83690; 84703; 85014; 85018; 85025; 85610; 85730; 86850; 86900; 86901; 96374; 96375; 96376; 99285; A4649; J2270; J2405; J2470; J7042; Q9967

== ENCOUNTER 2024-12-22 20:51 | Emergency (ER) | payer MEDICAID, SELFPAY ==
[2024-12-22 20:52] VITALS: BMI 18.8
--- NOTE | 2024-12-22 21:10 | PD.EDABDPN ---
ED Abdominal Pain RME/HPI General Chief Complaint: Abdominal Pain Stated complaint: BLOODY V/D Time seen by provider: 12/22/24 21:05 Arrival date/time: 12/22/24 20:51 RME / HPI RME / HPI narrative: This section includes all my notes and documentations, including HPI, PE, and ED course. Yan Ritter MD HPI: 39yo female with a history of gastrectomy 2/2 stomach CA, cholecystectomy presents to the ED for complaints of generalized abdominal pain, hematemesis, and bloody stools x today. Patient states her pain is moderate in nature. She states she called her PCP, [facility], due to her symptoms and was advised to come in for evaluation. She denies any fever, chills or any other associated symptoms. She is currently on Protonix, Prazosin, and Latuda. No other complaints. ROS: All negative except as documented in HPI. Physical Exam: General: Alert and oriented. No acute distress when remaining still. Eyes: Conjunctivae and lids clear. ENT: No nasal congestion. Neck: Supple. Heart: RRR. Lungs: No respiratory distress. Good air movement. No rhonchi, wheezing, rales. Abdomen: Soft and nontender. Legs: No clubbing, cyanosis, edema. Skin: Warm and dry. Neuro: Alert and oriented X 3. I reviewed all diagnostic test results. My review of the abdominal CT report is constipation. Blood tests and urine tests unremarkable. At this point, diagnoses include constipation. Recommended more outpatient workup. Based on my best medical judgment, made decision no further evaluation or treatment indicated at this time. Patient understands and agrees to the discharge instructions customized and printed, see below. Discharge Instructions from Dr. Ritter printed for you: 1. After extensive evaluation, there is no emergency. 2. Your CT scan shows significant constipation. Senokot S and milk of magnesia as prescribed. Zofran for nausea/vomiting. Tylenol: For severe pain. 3. See a private doctor on 12/25/24 for recheck and further care. Ask to review all test results and official radiology reports, to make sure you receive all necessary follow-ups and monitoring. To make sure there is no serious intra-abdominal condition, ask for help with more investigation not available here in the ER. Such as EGD or scoping the stomach, colonoscopy or scoping the colon, and referral to see post graduate internship. This is extremely important because is not normal to throw up blood in have rectal bleeding. 4. Seek immediate medical care with worsening or with any concerns. Yan Ritter MD Related Data Previous Rx's ?Medication ?Instructions ?Recorded ciprofloxacin HCl 500 mg tablet 500 mg PO Q12H #20 tabs 08/24/24 acetaminophen 300 mg-codeine 30 mg 2 tab PO TID PRN pain #20 tabs 12/23/24 tablet magnesium hydroxide 2,400 mg/10 mL 30 ml PO QDAY PRN constipation #60 12/23/24 oral suspension (Milk Of Magnesia mL Concentrated) ondansetron 4 mg disintegrating 4 mg PO TID PRN nausea and 12/23/24 tablet vomiting 5 days #10 tabs sennosides 8.6 mg-docusate sodium 4 tab-cap (4 x 8.6-50 mg) PO QDAY 12/23/24 50 mg tablet (Senokot-S) PRN constipation #20 tabs Allergies Allergy/AdvReac Type Severity Reaction Status Date / Time amoxicillin Allergy Severe Anaphylaxis Verified 11/20/24 12:46 Penicillins Allergy Severe Anaphylaxis Verified 11/20/24 12:46 ketorolac (From Toradol) Allergy Mild Hives Verified 11/20/24 12:46 Review of Systems Review of Systems Systems Reviewed: All systems reviewed, normal except as documented ED Exam Narrative Physical exam: As noted in HPI. Course Quality Measures none Orders Category Date Time Status CT abdomen pelvis wo con Stat Exams 12/22/24 21:11 Completed Amylase Stat Lab 12/22/24 21:25 Completed BMP [Basic Metabolic Panel] Stat Lab 12/22/24 21:25 Completed CBC Stat Lab 12/22/24 21:25 Completed Drug Screen,Urine Stat Lab 12/22/24 21:20 Completed HCG Qualitative,Urine Stat Lab 12/22/24 21:20 Completed HCG,Qualitative Serum Stat Lab 12/22/24 21:25 Completed Lipase Stat Lab 12/22/24 21:25 Completed Liver Panel Stat Lab 12/22/24 21:25 Completed Magnesium Stat Lab 12/22/24 21:25 Completed UA, C/S IF [Urinalysis, C/S if Indicated] Stat Lab 12/22/24 21:20 Completed Vital Signs Vital signs: Vital Signs Temperature 97.6 F 12/22/24 22:12 Pulse Rate 81 12/22/24 22:12 Respiratory Rate 18 12/22/24 22:12 Blood Pressure 112/80 12/22/24 22:12 Pulse Oximetry (%) 97 12/22/24 22:12 Oxygen Delivery Method Room Air 12/22/24 22:12 Abdominal Pain MDM MDM Narrative MDM Narrative:: Scribe Attestation: 12/22/24 - Edith Diaz am scribing for and in the presence of Dr. Ritter. Patient data External records reviewed:: [facility] previous records (Per chart review, patient was seen here on 11/20/24 for abdominal pain.) Clinical information provided by:: patient Social determinants that could affect healthcare access:: none Patient has the following chronic illnesses:: gastrectomy 2/2 stomach CA How is presenting disease/condition affected by chronic disease/condition?: uneffected by Evaluation data The following diagnostics were reviewed and interpreted by me:: lab results and radiology exam(s) Lab and/or radiology exams considered but not ordered:: none Interpretation Summary: Severe constipation Medications / Prescriptions Medications or Prescriptions considered but not ordered:: none Medication administrations:: none Consultations Consultation(s) initiated? (list below): No Diagnosis Differential diagnosis abdominal pain: acute appendicitis, calculus of kidney, constipation, diverticulitis, endometriosis, gastroenteritis, pancreatitis and small bowel obstruction Most likely diagnosis given after review of the tests above:: Constipation Admission Indicated Admission indicated?: not indicated Explain why admission is indicated or not indicated:: No criteria for admission. Admission Request Was there a request for admission?: No Disposition Plan Disposition Plan: Discharge Discharge Attestation Discharge Attestation: The patient and all family members were given an opportunity to ask questions and understood the discharge instructions. Discharge instructions specifically effects, indications for sooner follow up or return to the emergency department, and the expected course of current diagnosis. Patient condition: Stable Discharge Plan Plan Patient Disposition: HOME (Self Care) Prescriptions/Referrals Prescriptions/Med Rec: New sennosides-docusate sodium [Senokot-S] 8.6-50 mg tablet 4 tab-cap PO QDAY PRN (Reason: constipation) Qty: 20 0RF acetaminophen-codeine 300-30 mg tablet 2 tab PO TID MDD 6 PRN (Reason: pain) Qty: 20 0RF ondansetron 4 mg tablet,disintegrating 4 mg PO TID PRN (Reason: nausea and vomiting) 5 Days Qty: 10 0RF magnesium hydroxide [Milk Of Magnesia Concentrated] 2,400 mg/10 mL suspension 30 ml PO QDAY PRN (Reason: constipation) Qty: 60 0RF No Action ciprofloxacin HCl 500 mg tablet 500 mg PO Q12H Qty: 20 0RF Problem List Clinical Impression: Constipation Patient/Caregiver Discharge Instructions Discharge Activity: activity as tolerated Education Materials: ED Constipation (Adult) Additional Instructions: Discharge Instructions from Dr. Ritter printed for you: 1. After extensive evaluation, there is no emergency. 2. Your CT scan shows significant constipation. Senokot S and milk of magnesia as prescribed. Zofran for nausea/vomiting. Tylenol: For severe pain. 3. See a private doctor on 12/25/24 for recheck and further care. Ask to review all test results and official radiology reports, to make sure you receive all necessary follow-ups and monitoring. To make sure there is no serious intra-abdominal condition, ask for help with more investigation not available here in the ER. Such as EGD or scoping the stomach, colonoscopy or scoping the colon, and referral to see post graduate internship. This is extremely important because is not normal to throw up blood in have rectal bleeding. 4. Seek immediate medical care with worsening or with any concerns. Print Language: Palestinian Stand Alone Forms: [employer] Award Info., Patient Portal Info Letter
--- NOTE | 2024-12-22 21:11 | XR_ITS ---
Examination: CT abdomen and pelvis without contrast. Coronal 3-D reconstructions. Sagittal 2-D reconstructions. Date and time of exam:March 21, 2025 1128 hrs. Comparison November 20, 2024 Indications: Vomiting and diarrhea abdominal pain today CTDI: vol (mGy): 9.47 DLP: (mGycm): 536 Technique: Axial images of the abdomen have been obtained, 3 mm slice thickness Intravenous contrast material has not been administered. Low dose protocols were performed. One or more of the following dose reduction techniques were used; automated exposure control, adjustment of the mA and/or KV according to patient size, use of iterative reconstruction technique. Findings: No focal liver or splenic lesion Absent gallbladder No pancreatic or adrenal mass 2 mm mid pole nonobstructing left renal calculus coronal image 105 No bowel obstruction Normal appendix No diverticulitis Anteverted uterus No adnexal mass Contracted urinary bladder Suspicious for 4.4 cm left ureteropelvic size Severe osteopenia with kyphoplasty T12, chronic osteoporotic compression T9 Impression: 2 mm nonobstructing left renal calculus, no hydronephrosis or ureteral calculi Normal appendix Abundant stool throughout the entire colon, no obstruction Recommend pelvic sonography to exclude 4 cm posterior left pelvic cyst
[2024-12-22 21:54] LABS: Collection Type, Urine Clean Catch
[2024-12-22 21:59] LABS: Basophils # (Auto) 0.1 Thou/mm3 (0.0-0.2); Basophils % (Auto) 1 % (0-2.5); Eosinophils # (Auto) 0.1 Thou/mm3 (0.0-0.5); Eosinophils % (Auto) 1 % (0-10); Hematocrit 35.6 % (36.0-46.0); Hemoglobin 11.4 g/dL (12.0-16.0); Immature Granulocytes % (Auto) 0 % (0-0); Immature Granulocytes Auto 0.03 Thou/mm3 (0.00-0.00); Lymphocytes # (Auto) 3.7 Thou/mm3 (1.0-4.8); Lymphocytes % (Auto) 32 % (10-50); Mean Corpuscular Hemoglobin 27.2 pg (25.0-35.0); Mean Corpuscular Volume 85 fL (80-100); Monocytes # (Auto) 0.9 Thou/mm3 (0.0-0.8); Monocytes % (Auto) 8 % (0-12); Neutrophils # (Auto) 6.8 Thou/mm3 (1.8-7.7); Neutrophils % (Auto) 59 % (37-80); Nucleated Red Blood Cell % 0 /100 WBC (0); Platelet Count 355 Thou/mm3 (140-440); RDW Standard Deviation 60.7 fL (36.4-46.3); Red Blood Count 4.19 Miln/mm3 (4.00-5.20); White Blood Count 11.5 Thou/mm3 (3.6-11.0)
[2024-12-22 22:08] LABS: Bilirubin,Urine Negative (Negative); Blood,Urine Negative (Negative); Clarity,Urine Clear (Clear/Hazy); Color,Urine Lt-Yellow (Lt Yel-Yel); Culture Indicated,Urine Not Indicated; Glucose, Urine Negative (Negative); Ketones,Urine Negative (Negative); Leukocyte Esterase,Urine Positive (Negative); Nitrite,Urine Negative (Negative); Protein,Urine Trace (Neg - Trace); RBC,Urine 1 /hpf (0-3); Specific Gravity,Urine 1.042 (1.001-1.035); Squamous Epithelial Cell,Urine 10 /hpf (0-5); Urobilinogen,Urine Negative mg/dL (0.0-1.0); WBC,Urine 8 /hpf (0-5)
[2024-12-22 22:09] LABS: HCG Qualitative,Urine Negative
[2024-12-22 22:12] VITALS: BP 112/80; PULSE 81; RESP 18; TEMP 36.4; O2SAT 97
[2024-12-22 22:20] LABS: HCG,Qualitative Serum Negative
[2024-12-22 22:34] LABS: Amphetamine/Methamp Scrn,U Negative (Negative); Barbiturate Screen,Urine Negative (Negative); Benzodiazepines Screen,Urine Negative (Negative); Benzoylecgonine Screen, Ur Negative (Negative); Fentanyl Screen,Urine Negative (Negative); Opiate Screen,Urine Negative (Negative); THC Screen,Urine Negative (Negative)
[2024-12-22 22:51] LABS: Alanine Aminotransferase 16 U/L (10-49); Albumin, Serum 4.7 gm/dL (3.5-5.0); Alkaline Phosphatase 134 U/L (46-116); Anion Gap 8 (7-16); Aspartate Amino Transferase 19 U/L (0-34); BUN/Creatinine Ratio 24 Ratio (12-20); Bilirubin,Direct < 0.1 mg/dL (0.0-0.3); Bilirubin,Total 0.2 mg/dL (0.3-1.2); Blood Urea Nitrogen 24 mg/dL (9-23); Calcium 9.6 mg/dL (8.3-10.6); Carbon Dioxide 23.6 mMol/L (20.0-31.0); Chloride 107 mMol/L (98-107); Estimated Creatinine Clearance 66.2 mL/min (>60); Glucose 92 mg/dL (74-106); Lipase 44 U/L (12-53); Magnesium 2.3 mg/dL (1.6-2.6); Osmolality,Calculated 281 (275-295); Potassium 4.9 mMol/L (3.4-5.1); Sodium 139 mMol/L (136-145); Total Protein 7.7 gm/dL (5.7-8.2); eGFR > 60 See Note
[2024-12-22 23:03] LABS: Amylase 76 U/L (30-118)
== END 2024-12-23 01:20 | disposition home or self-care (01) ==
LOC: SERX 12-23 02:09
PROVIDERS: Emergency Provider Emergency Medicine
DX: K59.00 Constipation, unspecified (principal)
CPT/HCPCS: 36415; 74176; 80048; 80076; 80307; 81001; 81025; 82150; 83690; 83735; 84703; 85025; 99284

== ENCOUNTER 2025-01-23 13:57 | Emergency (ER) | payer MEDICAID, SELFPAY ==
--- NOTE | 2025-01-23 14:00 | EKG_ITS ---
[facility] Test Date: 2025-01-23 Pat Name: DREW LEON Department: Room: - Gender: Female [place] Reporter: : 1985 Requested By: Nate Collier ([place]) Order Number: [id number] Reading MD: Nate Collier ([place]) Measurements Intervals Colman Rate: 90 P: 43 TX: 130 QRS: 19 QRSD: 85 T: 41 QT: 353 QTc: 434 Interpretive Statements SINUS RHYTHM No previous ECG available for comparison /store/S0/[id number]/ecg/[id number].pdf
[2025-01-23 14:14] VITALS: BP 113/78; PULSE 95; RESP 18; TEMP 36.9; O2SAT 97; BMI 26.9
--- NOTE | 2025-01-23 14:18 | XR_ITS ---
Examination: Tibia-Fibula, right , 2 views Technique: Tibia-fibula AP lateral 2 views Date and time of exam: January 23, 2025 1326 hours INDICATIONS: Patient fell today with injury to the lower leg, lower leg pain. FINDINGS: Severe osteopenia Depression lateral tibial plateau Surgical clips medial upper lower leg IMPRESSION: Recommend coned knee films to assess fracture of the lateral tibial plateau
--- NOTE | 2025-01-23 14:18 | XR_ITS ---
Examination: CT brain head without contrast. 2-D sagittal coronal reconstructions Date and time of exam:January 23, 2025 1447 hours INDICATIONS: Syncopal episode today hit head CTDI: vol (mGy):46.4 DLP: (mGycm):924 Technique: Multiple CT axial sections of the brain have been obtained, 5 mm slice thickness. Contrast has not been administered. 2-D sagittal, coronal reconstructions have been obtained Low dose protocols were performed. One or more of the following dose reduction techniques were used; automated exposure control, adjustment of the mA and/or KV according to patient size, use of iterative reconstruction technique. Findings: No significant ventricular enlargement. Intra-axial or extra-axial hemorrhage density is not seen. No mass effect or midline shift Basal cisterns are not remarkable. Fourth ventricle is midline. Cranial vault intact. Impression: Negative for acute hemorrhage, mass effect or midline shift Advise clinical correlation follow-up accordingly
--- NOTE | 2025-01-23 14:19 | PD.EDRME ---
Rapid Medical Screening Exam RME Arrival date/time: 01/23/25 13:57 39 yo f present to Ed for c/o of syncope today. + leg laceration I have greeted and performed a focused initial assessment of this patient. A comprehensive ED assessment and evaluation of the patient, analysis of all test results, and completion of the medical decision making process will be conducted by additional ED providers. Chief Complaint: Wound/Laceration Time Seen by Provider: 01/23/25 14:15 Vital signs: Vital Signs Temperature 98.5 F 01/23/25 14:14 Pulse Rate 95 01/23/25 14:14 Respiratory Rate 18 01/23/25 14:14 Blood Pressure 113/78 01/23/25 14:14 Pulse Oximetry (%) 97 01/23/25 14:14 Oxygen Delivery Method Room Air 01/23/25 14:14
[2025-01-23 16:10] LABS: HCG,Qualitative Serum Negative
[2025-01-23 16:20] LABS: Alanine Aminotransferase 20 U/L (10-49); Albumin, Serum 4.2 gm/dL (3.5-5.0); Albumin/Globulin Ratio 1.6 (1.2-2.2); Alkaline Phosphatase 120 U/L (46-116); Anion Gap 9 (7-16); Aspartate Amino Transferase 29 U/L (0-34); BUN/Creatinine Ratio 25 Ratio (12-20); Bilirubin,Total 0.2 mg/dL (0.3-1.2); Blood Urea Nitrogen 20 mg/dL (9-23); Calcium 8.9 mg/dL (8.3-10.6); Calcium (Corrected) 8.9 mg/dL (8.5-10.1); Carbon Dioxide 21.5 mMol/L (20.0-31.0); Chloride 109 mMol/L (98-107); Creatinine (Component) 0.8 mg/dL (0.6-1.3); Estimated Creatinine Clearance 103.6 mL/min (>60); Globulin 2.6 gm/dL (2.3-3.5); Glucose 95 mg/dL (74-106); Osmolality,Calculated 280 (275-295); Potassium 4.7 mMol/L (3.4-5.1); Sodium 139 mMol/L (136-145); Total Protein 6.8 gm/dL (5.7-8.2); Troponin I < 0.002 ng/mL (0.0-0.045); eGFR > 60 See Note
--- NOTE | 2025-01-23 16:27 | XR_ITS ---
Examination: Right knee 4 views TECHNIQUE: AP oblique lateral axial right knee 4 views Exam date and time: January 23, 2025 1548 hours INDICATIONS: Patient fell today with injury to the knee, knee pain. FINDINGS: Prominent osteopenia No fracture No patellar dislocation Moderate narrowing medial joint space IMPRESSION: No acute fracture Given the osteopenia, suggest short-term follow-up knee films as clinically warranted
[2025-01-23 17:13] LABS: Basophils % (Auto) 1 % (0-2.5); Eosinophils # (Auto) 0.1 Thou/mm3 (0.0-0.5); Eosinophils % (Auto) 1 % (0-10); Hematocrit 31.6 % (36.0-46.0); Hemoglobin 10.1 g/dL (12.0-16.0); Immature Granulocytes % (Auto) 0 % (0-0); Immature Granulocytes Auto 0.01 Thou/mm3 (0.00-0.00); Lymphocytes # (Auto) 1.9 Thou/mm3 (1.0-4.8); Lymphocytes % (Auto) 35 % (10-50); Mean Corpuscular Hemoglobin 26.4 pg (25.0-35.0); Mean Corpuscular Volume 83 fL (80-100); Monocytes # (Auto) 0.4 Thou/mm3 (0.0-0.8); Monocytes % (Auto) 7 % (0-12); Neutrophils % (Auto) 56 % (37-80); Nucleated Red Blood Cell % 0 /100 WBC (0); Platelet Count 298 Thou/mm3 (140-440); RDW Standard Deviation 55.8 fL (36.4-46.3); Red Blood Count 3.82 Miln/mm3 (4.00-5.20); White Blood Count 5.3 Thou/mm3 (3.6-11.0)
--- NOTE | 2025-01-23 19:11 | EDNOTE_ITS ---
ED Wound/Laceration-RME/HPI General Chief Complaint: Wound/Laceration Stated Complaint: DIZZY, PASSED OUT IN SHOWER, LAC TO RLE Time Seen by Provider: 01/23/25 14:15 Arrival date/time: 01/23/25 13:57 39 year old female present to emergency room with c/o of syncope episode causing lower leg laceration. uptodat with tetanus LOCATION: leg SEVERITY: Symptoms are described as being severe with limitations on activities of daily living QUALITY: Symptoms are described as being dull or achy CONTEXT: matt in bathroom causing lower leg laceration DURATION/TIMING: The symptoms started approximately immediately prior to arrival ago and have been constant this then. ASSOCIATED SYMPTOMS: The patient is unable to identify any other associated symptoms. MODIFYING FACTORS: The patient is unable to identify any alleviating or aggravating symptoms. PERTINENT ROS: no fevers, no headache, no neck or chest pain, no unexplained nausea or vomiting, no focal neurological deficits REVIEW OF SYSTEMS: See History of Present Illness - with the exception of those mentioned in the history of present illness, all other systems reviewed and reported as negative GENERAL: In general the patient is awake, interactive, in an emergency department gurney. HEAD/EYES/EARS/NOSE/THROAT: normo-cephalic, atraumatic, mucus membranes are moist, anicteric, palpebral conjunctiva is pink, trachea is midline. CARDIOVASCULAR: regular rate and regular rhythm, no murmurs, heart sounds are not distant, strong pulses in all four extremities that are equal and symmetric bilateral upper and lower extremities, normal capillary refill. CHEST/PULMONARY: normal chest rise and fall, good air movement, clear to auscultation bilaterally, normal inspiratory to expiratory ratios without evidence of respiratory distress. NECK: No midline/Paraspinal tenderness, no step off ROM/Strenght intact No Kernig and bruzinski sign. No trauma ABDOMEN: soft, not tender, no masses appreciated BACK: normal range of motion without pain. NEUROLOGICAL: cranio-facial features are symmetric, moves all four extremities equally without obvious limitations or weakness. EXTREMITY: right lower 3cm vertical laceration no tenderness to palpation over the long bones or large joints of the bilateral upper extremities, no joint swelling, no joint erythema, no unilateral leg swelling and no peripheral edema. SKIN: warm, dry, well-perfused, no jaundice, no rash, no telangiectasias or petechia. PSYCH: calm, cooperative, no evidence of psychosis or agitation RME / HPI RME / HPI narrative: 01/23/25 13:57 39 yo f present to Ed for c/o of syncope today. + leg laceration I have greeted and performed a focused initial assessment of this patient. A comprehensive ED assessment and evaluation of the patient, analysis of all test results, and completion of the medical decision making process will be conducted by additional ED providers. Related Data Previous Rx's ?Medication ?Instructions ?Recorded ciprofloxacin HCl 500 mg tablet 500 mg PO Q12H #20 tab s 08/24/24 acetaminophen 300 mg-codeine 30 mg 2 tab PO TID PRN pa in #20 tabs 12/23/24 tablet magnesium hydroxide 2,400 mg/10 mL 30 ml PO QDAY PRN c onstipation #60 12/23/24 oral suspension (Milk Of Magnesia mL Concentrated) sennosides 8.6 mg-docusate sodium 4 tab-cap (4 x 8.6-5 0 mg) PO QDAY 12/23/24 50 mg tablet (Senokot-S) PRN constipation #20 tabs doxycycline hyclate 100 mg capsule 100 mg PO BID #14 c aps 01/23/25 Allergies Allergy/AdvReac Type Severity Reaction Status Date / Time amoxicillin Allergy Severe Anaphylaxis Verified 01/23/25 14:00 Penicillins Allergy Severe Anaphylaxis Verified 01/23/25 14:00 tramadol Allergy Severe Anaphylaxis Verified 01/23/25 14:00 Course Quality Measures none Orders Category Date Time Status EKG (ED ONLY) *Do not use* NOW Care 01/23/25 14:[address] head/brain wo con Stat Exams 01/23/25 14:18 Completed EKG (ED Only) Stat Exams 01/23/25 14:00 Draft XR knee comp RT 4V Stat Exams 01/23/25 16:27 Completed XR tibia fibula RT 2V Stat Exams 01/23/25 14:18 Completed CBC Stat Lab 01/23/25 16:45 Completed CMP [Comprehensive Metabolic Panel] Stat Lab 01/23/25 15:15 Completed HCG,Qualitative Serum Stat Lab 01/23/25 15:15 Completed Troponin I Stat Lab 01/23/25 15:15 Completed Doxycycline [Vibramycin] Med 01/23/25 19:21 Once 100 mg PO X1 ONE Vital Signs Vital signs: Vital Signs Temperature 98.5 F 01/23/25 14:14 Pulse Rate 95 01/23/25 14:14 Respiratory Rate 18 01/23/25 14:14 Blood Pressure 113/78 01/23/25 14:14 Pulse Oximetry (%) 97 01/23/25 14:14 Oxygen Delivery Method Room Air 01/23/25 14:14 Procedures -ED EKG Interpretation #1: Date of EK01/23/25 Rate: 90 Interpretation: Reviewed by me EKG Impression: Normal sinus rhythm, No acute ST-T changes, No ectopy, No ischemic changes and Normal QRS Laceration Laceration 1: Site: lower extremity Side (If applicable): right Size (cm): 3 Description: clean and other (vertical) Depth: simple, single layer Pre-repair: wound explored, irrigated extensively, deep structures intact, extensive debridement and wound margins revised Skin layer closed with: other (barb 7) Wound / Laceration MDM Narrative MDM Narrative:: Patient is admitted to the Emergency Department and evaluated. Patient appears well, is non-toxic and well hydrated. The wound is stable No signs of tendon or neurovascular involvement. Patient is given wound care and follow up instru ctions. Patient presenting with syncope.? Vital signs reviewed.? ECG obtained and reviewed, which was NSR without any acute ST/T wave changes.? EKG did not display heart block, brugada syndrome, QT prolongation, Delta waves.? Neuro exam was unremarkable.? Patient did not have urinary incontenence, bladder incontinence, biting of the tongue, or postictal period to suggest seizure.? Patient did not have chest pain, SOB, hypoxia, tachycardia to suggest PE or a cardiac etiology.? and on reassessment, symptoms completely resolved.?? History, physical exam, laboratory, and radiographic findings were discussed with the patient.? At this time, it is felt that the most likely explanation for the patient's symptoms is vasovagal versus orthostatic syncope.? I also considered ACS, arrythmia, angina, PE, electrolyte abnormality, medication side effect, seizure, head bleed but this appears less likely considering the data gathered thus far.? I have instructed the patient to return to the ER at any time if there are any new or worsening symptoms.? The patient expressed understanding of and agreement with this plan.? Opportunity was given for questions prior to discharge and all stated questions were answered to the patient's satisfaction.? Home care instructions provided.? Plan:?? Follow up with Primary Care provider rx: doxycline 100mg bid for 7 days Patient data External records reviewed:: [facility] previous records Clinical information provided by:: patient Social determinants that could affect healthcare access:: none Patient has the following chronic illnesses:: as stated in chart How is presenting disease/condition affected by chronic disease/condition?: no chronic disease Evaluation data The following diagnostics were reviewed and interpreted by me:: lab results, radiology exam(s) and EKG tracing(s) Lab and/or radiology exams considered but not ordered:: n/a Interpretation Summary: ct head, xray no acute findings cbc/cmp/trop wnl Medications / Prescriptions Medications or Prescriptions considered but not ordered:: n/a Medication administrations:: Medication Administration History Doxycycline Hyclate (Doxycycline 100 Mg Tablet) 100 mg PO X1 ONE Stop: 01/23/25 19:22 n/a Consultations Consultation(s) initiated? (list below): No Diagnosis Wound Differential Diagnosis: laceration, avulsion of skin and other (syncope, anemia, head bleed, mi/nstemi, dehydration, electroyle imbalance ) Most likely diagnosis given after review of the tests above:: syncope, laceration leg Admission Indicated Admission indicated?: not indicated Admission Request Was there a request for admission?: No Disposition Plan Disposition Plan: Discharge Discharge Attestation Discharge Attestation: The patient and all family members were given an opportunity to ask questions and understood the discharge instructions. Discharge instructions specifically effects, indications for sooner follow up or return to the emergency department, and the expected course of current diagnosis. Patient condition: Stable Discharge Plan Plan Patient Disposition: HOME (Self Care) Health Concerns: Return to ED if symptoms worsen Return in 10-14 days for staple removal Prescriptions/Referrals Prescriptions/Med Rec: New doxycycline hyclate 100 mg capsule 100 mg PO BID Qty: 14 0RF No Action ciprofloxacin HCl 500 mg tablet 500 mg PO Q12H Qty: 20 0RF sennosides-docusate sodium [Senokot-S] 8.6-50 mg tablet 4 tab-cap PO QDAY PRN (Reason: constipation) Qty: 20 0RF acetaminophen-codeine 300-30 mg tablet 2 tab PO TID MDD 6 PRN (Reason: pain) Qty: 20 0RF magnesium hydroxide [Milk Of Magnesia Concentrated] 2,400 mg/10 mL suspension 30 ml PO QDAY PRN (Reason: constipation) Qty: 60 0RF Referrals: No Primary/Family,Physician [Primary Care Provider] - In 1 week Problem List Clinical Impression: Laceration, Syncope Patient/Caregiver Discharge Instructions Education Materials: ED Laceration, Foot: All Closures, ED Fainting, Uncertain Cause Print Language: Azeri Stand Alone Forms: [employer] Award Info., Patient Portal Info Letter
[2025-01-23] MEDS: DOXYCYCLINE 100 MG TABLET PO (19:43)
== END 2025-01-23 20:01 | disposition home or self-care (01) ==
PROVIDERS: Physician Assistant; Emergency Provider Emergency Medicine
DX: S81.811A Laceration without foreign body, right lower leg, initial encounter (principal); W18.2XXA Fall in (into) shower or empty bathtub, initial encounter
CPT/HCPCS: 12002; 36415; 70450; 73564; 73590; 80053; 84484; 84703; 85025; 93005; 99284; A9270